=== PATIENT | female | born 1960 | race African-American/Black ===

== ENCOUNTER 2021-04-07 20:29 | Emergency (ER) | payer MEDICAID ==
[~2021-04-07] VITALS: Ht 167.6 cm; Wt 69.0 kg
[2021-04-07 20:52] VITALS: BP 130/80
== END 2021-04-07 23:55 | disposition home or self-care (01) ==
LOC: ER 20:29
DX: M25.561 Pain in right knee (principal); Z59.00 Homelessness unspecified; F20.9 Schizophrenia, unspecified; Y08.89XA Assault by other specified means, initial encounter; Y93.9 Activity, unspecified; Y92.9 Unspecified place or not applicable; Z88.0 Allergy status to penicillin; Z87.891 Personal history of nicotine dependence
CPT/HCPCS: 73562; 99283